=== PATIENT | female | born 1965 ===

== ENCOUNTER 2022-03-16 10:07 | Emergency (ER) | payer OTHER ==
[~2022-03-16] VITALS: Ht 157.5 cm; Wt 81.6 kg
[2022-03-16] MEDS ORDERED: GLUMETZA500 MG PO (10:53)
[2022-03-16] MEDS ORDERED: COZAAR50 MG PO (10:53)
[2022-03-16] MEDS ORDERED: SYNTHROID100 MCG PO (10:53)
[2022-03-16] MEDS ORDERED: HYDROCHLOROTH12.5 MG PO (16:08)
== END 2022-03-16 16:11 | disposition home or self-care (01) ==
LOC: ER 10:07
DX: I10 Essential (primary) hypertension (principal); E11.9 Type 2 diabetes mellitus without complications; Z79.84 Long term (current) use of oral hypoglycemic drugs

== ENCOUNTER 2022-05-11 23:14 | Emergency (ER) | payer OTHER ==
[~2022-05-11] VITALS: Ht 157.5 cm; Wt 79.4 kg
[~2022-05-11 23:14] MED LIST: COZAAR50 MG PO; GLUMETZA500 MG PO; HYDROCHLOROTH12.5 MG PO; SYNTHROID100 MCG PO
[2022-05-12] MEDS ORDERED: NORVASC10 MG PO (05:22)
== END 2022-05-12 05:27 | disposition home or self-care (01) ==
LOC: ER 23:14
DX: I10 Essential (primary) hypertension (principal)